=== PATIENT | female | born 2000 | race Caucasian/White ===

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

== ENCOUNTER 2022-04-01 05:05 | Inpatient (IN) | payer MEDICAID ==
[~2022-04-01] VITALS: Ht 144.8 cm; Wt 61.7 kg
[2022-04-01] MEDS ORDERED: PNV91TAB8 PO (05:31)
[2022-04-01] MEDS ORDERED: MORPHINE SULFATE 5 MG/ML VIAL IVP PRN (06:10)
[2022-04-01] MEDS: LACTATED RINGERS 1,000 ML IV SCH ×3 (07:15→18:53)
[2022-04-01] MEDS ORDERED: ONDANSETRON 4 MG/2 ML VIAL IVP PRN (07:40)
[2022-04-01] MEDS ORDERED: LACTATED RINGERS 500 ML IV SCH (07:40)
[2022-04-01] MEDS ORDERED: NALBUPHINE 10 MG/ML AMP IVP PRN (07:40)
[2022-04-01] MEDS ORDERED: NALBUPHINE 10 MG/ML AMP ONE (07:44)
[2022-04-01] MEDS ORDERED: ONDANSETRON 4 MG/2 ML VIAL ONE (07:44)
[2022-04-01] MEDS ORDERED: OXYTOCIN 20 UNITS in LACTATED RINGERS 1,000 ML IV SCH ×2 (07:45→13:10)
[2022-04-01 08:47] LABS: HEMATOCRIT 21.4 % (36-48); MEAN CORPUSCULAR HEMOGLOBIN 18 pg (27-31); MEAN CORPUSCULAR HGB CONC 30 g/dL (33-37); MEAN CORPUSCULAR VOLUME 60.4 fL (80-94); PLATELET COUNT (AUTO) 252 K/uL (140-450); RED BLOOD CELL COUNT(AUTO) 3.54 MIL/uL (4.20-5.40); RED CELL DISTRIBUTION WIDTH 18.5 % (11.6-13.7)
[2022-04-01 08:59] LABS: ALBUMIN 2.4 g/dL (3.4-5.0); ANION GAP 9.1 (8-16); CARBON DIOXIDE 24.9 mmol/L (21-32); CREATININE 0.5 mg/dL (0.6-1.3); TOTAL BILIRUBIN 0.3 mg/dL (0.0-1.0)
[2022-04-01 09:25] LABS: HEMOGLOBIN 6.5 g/dL (12.0-16.0)
[2022-04-01] MEDS ORDERED: ROPIVACAINE 0.2%/NS PREMIX 200 ML EPI ONE (09:53)
[2022-04-01] MEDS ORDERED: OXYTOCIN 20 UNITS/LR PREMIX 1,000 ML IV ONE (13:41)
[2022-04-01] MEDS: DIPHENOXYLATE /ATROPINE 2.5 MG TAB PO PRN ×2 (14:16→20:15)
[2022-04-01 14:50] LABS: EOSINOPHILS % (MANUAL) 2 % (0-4); LYMPHOCYTES % (MANUAL) 20 % (20-46); MONOCYTES % (MANUAL) 5 % (5-12)
--- NOTE | 2022-04-01 16:47 | NUR ---
PATIENT HAS BEEN SCREENED AND CATEGORIZED LOW NUTRITION RISK. PATIENT WILL BE SEEN WITHIN 7 DAYS OF ADMISSION. 04/08/[address]
[2022-04-01 16:57] LABS: APPEARANCE,URINE CLEAR (CLEAR); BILIRUBIN,URINE NEGATIVE (NEGATIVE); BLOOD, URINE 2+ (NEGATIVE); COLOR,URINE YELLOW (YELLOW); LEUKOCYTE ESTERASE ,URINE NEGATIVE (NEGATIVE); NITRITE, URINE NEGATIVE (NEGATIVE); PH,URINE 7.5 (5.0-9.0); UGLUCOSE NEGATIVE (NEGATIVE)
[2022-04-01 17:19] LABS: RBC,URINE 11-20 (MOD) /HPF (0-5); WBC,URINE 0-5 /HPF (0-5)
[2022-04-01] MEDS ORDERED: BENZOCAINE/MENTHOL 20%-0.5% 60 GM CAN TP PRN (23:00)
[2022-04-01] MEDS ORDERED: METHYLERGONOVINE 0.2 MG/ML AMP IM PRN (23:00)
[2022-04-01] MEDS ORDERED: METHYLERGONOVINE 0.2 MG TAB PO PRN (23:00)
[2022-04-01] MEDS ORDERED: OXYTOCIN 10 UNITS/ML VIAL IM PRN (23:00)
[2022-04-01] MEDS ORDERED: oxyCODONE/APAP 5/325 MG 1 TAB TAB PO PRN ×2 (23:00)
[2022-04-01] MEDS ORDERED: TEMAZEPAM 15 MG CAP PO PRN (23:00)
[2022-04-01] MEDS ORDERED: IBUPROFEN 800 MG TAB PO PRN (23:00)
[2022-04-02 12:09] LABS: HEMATOCRIT 26.2 % (36-48); HEMOGLOBIN 8.3 g/dL (12.0-16.0)
[2022-04-02] MEDS ORDERED: DOCUSATE SOD/SENNA 50/8.6 MG 1 TAB PO SCH (21:00)
== END 2022-04-03 13:02 | disposition home or self-care (01) | DRG 560 ==
LOC: MLD 05:05 → OBSVTOIN 07:38 → MFCC 04-02 02:20
PROVIDERS: ADMIT Obstetrics & Gynecology; ATTEND Obstetrics & Gynecology
PROC: 10E0XZZ Delivery of Products of Conception, External Approach (ICD-10-PCS; principal; 2022-04-01)
PROC: 10907ZC Drainage of Amniotic Fluid, Therapeutic from Products of Conception, Via Natural or Artificial Opening (ICD-10-PCS; 2022-04-01)
PROC: 3E0S3BZ Introduction of Anesthetic Agent into Epidural Space, Percutaneous Approach (ICD-10-PCS; 2022-04-01)
PROC: 00HU33Z Insertion of Infusion Device into Spinal Canal, Percutaneous Approach (ICD-10-PCS; 2022-04-01)
PROC: 30233N1 Transfusion of Nonautologous Red Blood Cells into Peripheral Vein, Percutaneous Approach (ICD-10-PCS; 2022-04-01)
DX: O80 Encounter for full-term uncomplicated delivery (principal); Z37.0 Single live birth; R71.0 Precipitous drop in hematocrit; Z20.822 Contact with and (suspected) exposure to COVID-19; Z3A.39 39 weeks gestation of pregnancy
CPT/HCPCS: 36415; 51702; 59409; 80053; 81001; 85018; 85025; 86592; 86886; 86900; 86901; 86920; J2300; J2405; J2590; J2795; J7120; P9016